=== PATIENT | male | born 1975 | race Caucasian/White ===

== ENCOUNTER 2024-02-16 23:13 | Emergency (ER) | payer OTHER ==
[~2024-02-16] VITALS: Ht 175.3 cm; Wt 136.1 kg
[2024-02-16 23:17] VITALS: PULSE 89; RESP 20; TEMP 102.4
[2024-02-16] MEDS: IBUPROFEN 600 MG TAB PO STA (23:30)
[2024-02-16 23:55] LABS: STREPTOCOCCUS GRP A ANTIGEN NEGATIVE (NEGATIVE)
[2024-02-17] MEDS ORDERED: METFORMIN HCL1000 MG PO (00:04)
[2024-02-17 00:06] LABS: RESPIRATORY SYNC. VIRUS NEGATIVE (NEGATIVE)
[2024-02-17 00:11] LABS: INFLUENZAE A&B ANTIGEN (RAPID) NEGATIVE (NEGATIVE)
[2024-02-17 00:19] VITALS: BP 116/65; PULSE 92; RESP 17; TEMP 101; O2SAT 96
== END 2024-02-17 00:10 | disposition home or self-care (01) ==
LOC: ER 23:18
DX: U07.1 COVID-19 (principal); E11.9 Type 2 diabetes mellitus without complications; Z79.84 Long term (current) use of oral hypoglycemic drugs; Z87.891 Personal history of nicotine dependence
CPT/HCPCS: 0223U; 36415; 82948; 83518; 87070; 87400; 87420; 99283